=== PATIENT | male | born 1960 | race African-American/Black ===

== ENCOUNTER 2019-06-13 19:49 | Observation (INO) ==
[2019-06-13] MEDS ORDERED: FUROSEMIDE 10 MG/ML VIAL IV ONE (20:05)
[2019-06-13 20:23] LABS: Hematocrit 41.8 % (42.0-52.0); Hemoglobin 13.2 gm/dL (13.5-18.0); Mean Cell Volume 85.1 fl (78-100); Mean Corpuscular Hemoglobin 26.9 pg (27-31); Mean Corpuscular Hgb Conc 31.6 g/dl (32-36); Neutrophil # 4.1 K/mm3 (1.3-6.0); Neutrophil % 71.2 % (42-75.0); Platelet Count 229 K/mm3 (150-450); Red Blood Count 4.91 M/mm3 (4.7-6.0); Red Cell Distribution Width 18.8 % (11.5-14.0); White Blood Count 5.7 K/mm3 (4.0-10.5)
[2019-06-13 20:44] LABS: Albumin * 3.1 gm/dl (3.4-5.0); Anion Gap 10.9 mmol/L (6.8-13.8); BUN/Creatinine Ratio 15.2 (9.0-21.6); Bilirubin, Total 0.4 mg/dL (0.0-1.1); Ca. Corrected For Albumin 8.7 mg/dL (8.4-10.2); Calcium * 8.3 mg/dL (7.9-10.9); Carbon Dioxide 27.3 mmol/L (24-32.6); Potassium 4.2 mmol/L (3.4-4.6); Total Protein 7.4 gm/dL (6.2-8.2); Troponin I 0.071 ng/mL (0.00-0.10)
--- NOTE | 2019-06-13 21:00 | ERNOTE ---
Dyspnea - Date Date of Service: 06/13/19 - General Presenting Symptoms: shortness of breath Time Seen by Provider: 06/13/19 20:04 Source: patient - Immun/Allergies/Home Medications Immunizations: IMMUNIZATION HX Immunizations Up to Date Yes History of Influenza Vaccine No Hx Pneumococcal Vaccination No Allergies/Adverse Reactions: Allergies penicillin G Allergy (Verified 06/13/19 20:13) Home Medications: HOME MEDICATIONS Albuterol Sulfate [Ventolin Hfa] 2 puff IH Q4H PRN 11/15/12 [Last Taken Unknown] Losartan Potassium [Cozaar] 50 mg PO DAILY 11/15/12 [Last Taken Unknown] Metoprolol Tartrate [Lopressor] 100 mg PO QAM 11/15/12 [Last Taken Unknown] Acetaminophen [Tylenol] 500 mg PO QID PRN #30 tab 06/14/19 [Last Taken Unknown] Albuterol Sulfate [Albuterol Sulfate Hfa] 2 puff INHALATION Q4H PRN #1 hfa.aer.ad 06/14/19 [Last Taken Unknown] Atorvastatin Calcium 40 mg PO DAILY 06/14/19 [Last Taken Unknown] Furosemide [Lasix] 80 mg PO DAILY #30 tab 06/14/19 [Last Taken Unknown] Losartan Potassium [Cozaar] 10 mg PO DAILY #30 tab 06/14/19 [Last Taken Unknown] Metoprolol Tartrate [Lopressor] 50 mg PO QPM #30 tab 06/14/19 [Last Taken Unknown] Potassium Chloride [Klor-Con 10] 10 meq PO DAILY #30 tab 06/14/19 [Last Taken Unknown] amLODIPine BESYLATE [Norvasc] 10 mg PO DAILY #30 tab 06/14/19 [Last Taken Unknown] - History of Present Illness Narrative: 58-year-old male comes to the emergency department with progressive dyspnea on exertion and leg swelling. The patient was admitted to [facility] about 2 weeks ago or a little longer. He was discharged about 2 weeks ago. The patient is moving from [place] to [place]. The patient says that he canceled his [place] Medicaid but has not gotten the [place] Medicaid started. Consequently he has not taken any of his medicines except aspirin for at least 10 days to 2 weeks. The patient reports that he has orthopnea, dyspnea, paroxysmal nocturnal dyspnea, leg swelling. He says this is just like when he was admitted to the [facility] a few weeks ago. He has intermittent dull brief chest pain not associated with significant shortness of breath, nausea, diaphoresis. There is no radiation. It is not brought on by exertion and does not go away with rest. Again he has been taking his aspirin. He has had a bit of a runny nose and a nonproductive cough. A bit of abdominal swelling. No fever. No other complaints Review of Systems - Review of Systems Constitutional: Present: fatigue, malaise EYE: Present: no symptoms reported ENT: Present: nasal drainage, sore throat Respiratory: Present: shortness of breath, cough Cardiology: Present: chest pain Gastrointestinal/Abdominal: Present: no symptoms reported. Absent: nausea, vomiting Genitourinary: Present: no symptoms reported Musculoskeletal: Present: no symptoms reported Skin: Present: no symptoms reported Neurological: Present: no symptoms reported Endocrine: Present: no symptoms reported Hematologic/Lymphatic: Present: no symptoms reported Psych: Present: no symptoms reported All Other Systems: All systems neg except as marked Medical History (Updated 06/14/19 @ 13:52 by Pia Aguero MD) Anemia Anxiety CHF (congestive heart failure) COPD (chronic obstructive pulmonary disease) Diabetes Hypertension No pertinent family history Surgical History: Surgical History (Updated 06/14/19 @ 01:09 by Katherin Lovett RN) No pertinent past surgical history Family History: Family History (Updated 06/14/19 @ 00:17 by Katherin Lovett RN) Other No pertinent family history Physical Exam - Physical Exam General Appearance: Present: wd/wn, alert, no apparent distress Head Exam: Present: normal inspection, no evidence of injury Eye Exam: Normal inspection: bilateral, PERRL: bilateral, EOMI: bilateral Ears, Nose, Throat: Present: normal ENT inspection, normal pharynx, other Neck: Present: other - Mucous membranes are moist patient has JVD to the angle. No adenopathy Respiratory: Present: other - Patient has decreased breath sounds throughout with crackles at the bases Cardiovascular/Chest: Present: other - Tachycardic with an S4 Gastrointestinal/Abdominal: Present: normal bowel sounds, nontender, nondistended, soft Back Exam: Present: normal inspection, normal range of motion, no CVA tenderness, no vertebral tenderness Extremity Exam: Present: other - Significant edema bilateral lower extremities 4+ pitting up past the knee Neurological Exam: Present: alert, oriented, normal mood/affect, no motor/sensory deficits Skin Exam: Present: normal color, warm/dry Lymphatic Exam: Present: no adenopathy Progress - Results and Orders Patient's Lab Results:: I have reviewed the patient's lab results. - Vital Signs Patient's Vital Signs:: I have reviewed the patient's vital signs. Vital Signs: Vital Signs 06/13/19 19:58 06/13/19 20:13 06/13/19 20:26 Temperature 37.1 C Pulse Rate 111 H 108 H 108 H Respiratory Rate 20 14 Blood Pressure 174/122 H 183/132 H 175/128 H O2 Sat by Pulse Oximetry 100 99 06/13/19 20:31 06/13/19 20:36 Temperature Pulse Rate 109 H 111 H Respiratory Rate 18 20 Blood Pressure 170/116 H 182/134 H O2 Sat by Pulse Oximetry 100 100 - EKG EKG #1 EKG read: Interp. by me EKG Comments: Sinus tachycardia with a ventricular rate of 118. Right bundle branch block morphology in V1 and V2 but QRS is less than 120 which makes this incomplete right bundle. No ST elevation. Nonspecific T wave changes. Flattening in 1 and aVL. Otherwise T waves have normal direction. - X-Ray X-Ray #1 X-Ray: chest Interpretation: Interp. by me X-ray Comments: Chest x-ray shows vascular congestion with a right middle lobe area of infiltrate or possibly mass. No old's are available. - Progress/Reassessment Chief Complaint: Dyspnea Plan - Plan Plan: I discussed the case with Dr. Potter who is the admitting physician. He would like the patient to get 5 mg of Lopressor IV and 5 mg of lisinopril p.o. Continue to try to get the records and once we get those he will adjust medicines here. The patient is urinating. He was feeling a little achy, takes hydrocodone 3 times a day at home. Was given 5 mg of morphine and said he feels better. I did discuss with Dr. Aguero there is a rounded density in the right middle lobe. Patient is afebrile does not have leukocytosis and not coughing significantly. I doubt pneumonia. No reason to perform blood tests or start antibiotics Departure Clinical Impression: CHF (congestive heart failure) - Departure Disposition: Still a patient Condition: Stable
[2019-06-13] MEDS ORDERED: MORPHINE SULFATE 10 MG/ML SYRG IV ONE (21:50)
[2019-06-13] MEDS ORDERED: METOPROLOL TARTRATE 1 MG/ML AMPUL IV ONE (22:11)
[2019-06-13] MEDS ORDERED: LISINOPRIL 10 MG TABLET PO ONE (22:11)
[2019-06-13] MEDS ORDERED: FLU VACC QS2019-20(6MOS UP)/PF 60 MCG/0.5 ML SYRINGE IM ONE (23:50)
--- NOTE | 2019-06-14 08:39 | HP ---
Chief Complaint - Chief Complaint Date of Service: 06/14/19 Time of Service: 08:38 Chief Complaint: shortness of breath History of Present Illness: Xiang lee is a 58-year-old male with past medical history of hypertension, coronary artery disease, congestive heart failure, diastolic, COPD who was admitted on 06/13/2019 because of increasing shortness of breath. The patient was recently discharged from [facility] where he was admitted from [address] [place] [address] for acute CHF exacerbation exacerbation. The patient is staying in his truck and is moving from [place] to [place] and was not able to fill his medication because he is still in the process of being accomplishing his Medicaid papers. For the last few days the patient has been having increasing shortness of breath associated with orthopnea, paroxysmal nocturnal dyspnea, and increasing leg swelling. He had a brief chest pain which was not associated with exertion and did not go away with rest. The patient then went to our emergency room where chest x-ray showed that he had some opacities which could be atelectasis but infection cannot be ruled out, increased vascular congestion likely interstitial edema. His EKG shows sinus tachycardia, left atrial enlargement, incomplete right bundle branch block, nonspecific ST-T wave abnormality. His troponins x 2 were within normal limits. His white blood cell count was normal and his BNP was elevated. He was given IV Lasix and was admitted for further evaluation and treatment. He put out 3.6 L since admission. He is feeling much better this morning. Medical History (Updated 06/14/19 @ 01:10 by Katherin Lovett RN) Anemia Anxiety CHF (congestive heart failure) COPD (chronic obstructive pulmonary disease) Diabetes Hypertension No pertinent family history Surgical History: Surgical History (Updated 06/14/19 @ 01:09 by Katherin Lovett RN) No pertinent past surgical history Family History: Family History (Updated 06/14/19 @ 00:17 by Katherin Lovett RN) Other No pertinent family history Review Of Systems (GEN) - Review of Systems Generalized/Overall Review: Absent: Weakness, Chills, Fever EENTM: Absent: Blurred Vision Respiratory: Present: Cough, Shortness of Breath, Orthopnea Cardiac: Present: Chest Pain, Edema. Absent: Palpitations Abdominal: Absent: Nausea, Vomiting Genitourinary: Absent: Urgency, Frequency Musculoskeletal: Absent: Joint Pain, Back Pain Neurological: Absent: Headache Skin: Absent: Lesions, Rash Immunizations: IMMUNIZATION HX Immunizations Up to Date Yes History of Influenza Vaccine No Hx Pneumococcal Vaccination No Allergies/Adverse Reactions: Allergies Allergy/AdvReac Type Severity Reaction Status Date / Time penicillin G Allergy Verified 06/13/19 20:13 Home Medications: HOME MEDICATIONS Albuterol Sulfate [Ventolin Hfa] 18 gm IH Q4H PRN 11/15/12 [Last Taken Unknown] Losartan Potassium [Cozaar] 50 mg PO DAILY 11/15/12 [Last Taken Unknown] Metoprolol Tartrate [Lopressor] 50 mg PO BID 11/15/12 [Last Taken Unknown] amLODIPine BESYLATE [Norvasc (Amlodipine)] 10 mg PO DAILY 11/15/12 [Last Taken Unknown] Exam - Exam Vital Signs: Vital Signs - Last Taken Temp 36.8 C 06/14/19 06:37 Pulse 85 06/14/19 06:37 Resp 20 06/14/19 06:37 BP 145/96 H 06/14/19 06:37 Pulse Ox 93 06/14/19 06:37 Constitutional: Present: Alert, Oriented x3, Cooperative ENT Exam: Present: hearing grossly normal Eye Exam: bilateral eye: normal inspection, PERRL, EOMI Neck: Present: supple. Absent: lymphadenopathy (R), lymphadenopathy (L) Respiratory: Present: decreased breath sounds, rales, wheezing Cardiovascular/Chest: Present: regular rate, rhythm, no JVD, no murmur Abdomen: Present: Normal bowel sounds, soft, nontender, nondistended Extremity: Present: no calf tenderness, lower extremity edema Diagnostic Studies: Abnormal Lab Results 06/13/19 06/13/19 Range/Units 20:20 20:20 Hgb 13.2 L (13.5-18.0) gm/dL Hct 41.8 L (42.0-52.0) % MCH 26.9 L (27-31) pg MCHC 31.6 L (32-36) g/dl RDW 18.8 H (11.5-14.0) % Lymphocytes % 16.7 L (20-51) % Monocytes % 9.8 H (0.0-9) % Lymphocytes # 0.95 L (1.5-3.5) k/mm3 Random Glucose 111 H (70-110) mg/dL ALT 17 L (19-67) U/L B-Natriuretic Peptide 1927 H (5-175) pg/mL Albumin 3.1 L (3.4-5.0) gm/dl Laboratory Results WBC 5.7 K/mm3 (4.0-10.5) 06/13/19 20:20 RBC 4.91 M/mm3 (4.7-6.0) 06/13/19 20:20 Hgb 13.2 gm/dL (13.5-18.0) L 06/13/19 20:20 Hct 41.8 % (42.0-52.0) L 06/13/19 20:20 MCV 85.1 fl (78-100) 06/13/19 20:20 MCH 26.9 pg (27-31) L 06/13/19 20:20 MCHC 31.6 g/dl (32-36) L 06/13/19 20:20 RDW 18.8 % (11.5-14.0) H 06/13/19 20:20 Plt Count 229 K/mm3 (150-450) 06/13/19 20:20 MPV 9.0 fl (8-11.3) 06/13/19 20:20 Immature Gran % (Auto) 0.20 % (0.001-0.429) 06/13/19 20:20 Immature Gran # (Auto) 0.01 K/mm3 (0.000-0.0310) 06/13/19 20:20 71.2 % (42-75.0) 06/13/19 20:20 16.7 % (20-51) L 06/13/19 20:20 9.8 % (0.0-9) H 06/13/19 20:20 1.4 % (0.0-3.0) 06/13/19 20:20 0.7 % (0.0-1.0) 06/13/19 20:20 Nucleated RBC % 0.0 k/mm3 (0-1) 06/13/19 20:20 4.1 K/mm3 (1.3-6.0) 06/13/19 20:20 0.95 k/mm3 (1.5-3.5) L 06/13/19 20:20 0.6 k/mm3 (0.0-1.0) 06/13/19 20:20 0.1 k/mm3 (0.0-0.7) 06/13/19 20:20 Absolute Basophils 0.0 k/mm3 (0.0-0.1) 06/13/19 20:20 Sodium 135 mmol/L (132-142) 06/13/19 20:20 135 mmol/L (130-142) 06/13/19 20:20 Potassium 4.2 mmol/L (3.4-4.6) 06/13/19 20:20 Chloride 101 mmol/L (97-106) 06/13/19 20:20 Carbon Dioxide 27.3 mmol/L (24-32.6) 06/13/19 20:20 10.9 mmol/L (6.8-13.8) 06/13/19 20:20 BUN 17 mg/dL (6-23) 06/13/19 20:20 1.12 mg/dL (0.4-1.4) 06/13/19 20:20 Est GFR (Non-Af Amer) 87 mL/min (60-130) 06/13/19 20:20 15.2 (9.0-21.6) 06/13/19 20:20 111 mg/dL (70-110) H 06/13/19 20:20 Calcium 8.3 mg/dL (7.9-10.9) 06/13/19 20:20 Calcium Adj for Albumin 8.7 mg/dL (8.4-10.2) 06/13/19 20:20 0.4 mg/dL (0.0-1.1) 06/13/19 20:20 AST 20 U/L (0-48) 06/13/19 20:20 ALT 17 U/L (19-67) L 06/13/19 20:20 64 U/L (50-170) 06/13/19 20:20 0.064 ng/mL (0.00-0.10) 06/14/19 00:10 B-Natriuretic Peptide 1927 pg/mL (5-175) H 06/13/19 20:20 7.4 gm/dL (6.2-8.2) 06/13/19 20:20 3.1 gm/dl (3.4-5.0) L 06/13/19 20:20 Assessment/Plan - Narrative Narrative: Deanna Church was admitted for increasing shortness of breath due to acute CHF exacerbation likely from missed medications. He put out 3.6 L since admission after getting 80 mg of IV Lasix. He is feeling much better this morning.. We will give him another 40 mg of IV Lasix today and resume his home medications. We will also give him DuoNeb treatments and continue his Ventolin inhaler as needed.. We will repeat BMP today. He is likely to be discharge later if he continues to be stable. He is saturating 93% on room air - Assessment/Plan (1) Acute exacerbation of CHF (congestive heart failure) Problem: Acute (2) Hypertension Problem: Acute (3) COPD (chronic obstructive pulmonary disease) Problem: Chronic (4) Hyperlipidemia Problem: Chronic
[2019-06-14] MEDS ORDERED: LOSARTAN POTASSIUM 50 MG TABLET PO SCH (09:00)
[2019-06-14] MEDS ORDERED: ALBUTEROL SULFATE 2.5 MG/0.5 ML VIAL.NEB IH PRN (09:27)
[2019-06-14] MEDS ORDERED: amLODIPine BESYLATE 10 MG TABLET PO SCH (09:30)
[2019-06-14] MEDS ORDERED: METOPROLOL TARTRATE 50 MG TABLET PO SCH (09:30)
[2019-06-14] MEDS ORDERED: FUROSEMIDE 10 MG/ML VIAL IV ONE ×4 (09:33→10:30)
[2019-06-14 10:11] LABS: Anion Gap 6.8 mmol/L (6.8-13.8); BUN/Creatinine Ratio 14.8 (9.0-21.6); Calcium * 8.1 mg/dL (7.9-10.9); Carbon Dioxide 30.7 mmol/L (24-32.6); Estimated Creat Clear 81.3; Potassium 3.5 mmol/L (3.4-4.6)
[2019-06-14] MEDS: ALBUTEROL SULFATE/IPRATROPIUM 3 ML NEBU IH SCH ×2 (10:16→14:07)
[2019-06-14] MEDS ORDERED: POTASSIUM CHLORIDE 10 MEQ TABLET.SA PO ONE (13:18)
--- NOTE | 2019-06-14 13:23 | DS ---
(1) Acute exacerbation of CHF (congestive heart failure) Problem: Resolved (2) Hypertension Problem: Chronic (3) COPD (chronic obstructive pulmonary disease) Problem: Chronic (4) Hyperlipidemia Problem: Chronic Date of Discharge:: 06/14/19 Description of Stay: Xiang Ramos is a 58-year-old male with past medical history of hypertension, coronary artery disease, congestive heart failure, diastolic, COPD who was admitted on 06/13/2019 because of increasing shortness of breath. The patient was recently discharged from [facility] where he was admitted from [address] [place] [address] for acute CHF exacerbation exacerbation. The patient is staying in his truck and is moving from [place] to [place] and was not able to fill his medication because he is still in the process of being accomplishing his Medicaid papers. For the last few days the patient has been having increasing shortness of breath associated with orthopnea, paroxysmal nocturnal dyspnea, and increasing leg swelling. He had a brief chest pain which was not associated with exertion and did not go away with rest. The patient then went to our emergency room where chest x-ray showed that he had some opacities which could be atelectasis but infection cannot be ruled out, increased vascular congestion likely interstitial edema. His EKG shows sinus tachycardia, left atrial enlargement, incomplete right bundle branch block, nonspecific ST-T wave abnormality. His troponins x 2 were within normal limits. His white blood cell count was normal and his BNP was elevated. He was given IV Lasix and was admitted for further evaluation and treatment. He put out 3.6 L since admission. He is feeling much better this morning. We gave him another 40 mg of IV lasix and resumed his home medications. We started him on Duoneb treatments. He is stable to be discharged today and he will follow up with his doctors in [place]. Procedures Performed: none Results and Findings: Lab Pending Results 06/13/19 20:20: WBC 5.7, RBC 4.91, Hgb 13.2 L, Hct 41.8 L, MCV 85.1, MCH 26.9 L, MCHC 31.6 L, RDW 18.8 H, Plt Count 229, MPV 9.0, Immature Gran % (Auto) 0.20, Immature Gran # (Auto) 0.01, Neutrophils % 71.2, Lymphocytes % 16.7 L, Monocytes % 9.8 H, Eosinophils % 1.4, Basophils % 0.7, Nucleated RBC % 0.0, Neutrophils # 4.1, Lymphocytes # 0.95 L, Monocytes # 0.6, Eosinophils # 0.1, Absolute Basophils 0.0 06/13/19 20:20: Sodium 135, Plasma Sodium 135, Potassium 4.2, Chloride 101, Carbon Dioxide 27.3, Anion Gap 10.9, BUN 17, Creatinine 1.12, Est GFR (Non-Af Amer) 87, BUN/Creatinine Ratio 15.2, Random Glucose 111 H, Calcium 8.3, Calcium Adj for Albumin 8.7, Total Bilirubin 0.4, AST 20, ALT 17 L, Alkaline Phosphatase 64, Troponin I 0.071, B-Natriuretic Peptide 1927 H, Total Protein 7.4, Albumin 3.1 L 06/14/19 00:10: Troponin I 0.064 06/14/19 09:56: Sodium 135, Plasma Sodium 135, Potassium 3.5, Chloride 101, Carbon Dioxide 30.7, Anion Gap 6.8, BUN 16, Creatinine 1.08, Est GFR (Non-Af Amer) 91, BUN/Creatinine Ratio 14.8, Random Glucose 127 H, Calcium 8.1 Discharge Location: Home Disposition: Home self-care Condition: Stable Discharge Activity: Activity as tolerated Discharge Diet: Low salt Additional Patient Instructions (free text): Follow up with PCP at [facility] in [place], [place]. Prescriptions (Any new or edited meds): Losartan Potassium [Cozaar] 10 mg PO DAILY #30 tab Potassium Chloride [Klor-Con 10] 10 meq PO DAILY #30 tab Furosemide [Lasix] 80 mg PO DAILY #30 tab Metoprolol Tartrate [Lopressor] 50 mg PO QPM #30 tab amLODIPine BESYLATE [Norvasc] 10 mg PO DAILY #30 tab Acetaminophen [Tylenol] 500 mg PO QID PRN #30 tab PRN Reason: Pain Complete Home Medications List: Complete Home Medication List: Albuterol Sulfate [Ventolin Hfa] 2 puff IH Q4H PRN 11/15/12 Losartan Potassium [Cozaar] 50 mg PO DAILY 11/15/12 Metoprolol Tartrate [Lopressor] 100 mg PO QAM 11/15/12 Acetaminophen [Tylenol] 500 mg PO QID PRN #30 tab 06/14/19 Atorvastatin Calcium 40 mg PO DAILY 06/14/19 Furosemide [Lasix] 80 mg PO DAILY #30 tab 06/14/19 Losartan Potassium [Cozaar] 10 mg PO DAILY #30 tab 06/14/19 Metoprolol Tartrate [Lopressor] 50 mg PO QPM #30 tab 06/14/19 Potassium Chloride [Klor-Con 10] 10 meq PO DAILY #30 tab 06/14/19 amLODIPine BESYLATE [Norvasc] 10 mg PO DAILY #30 tab 06/14/19
[2019-06-14] MEDS ORDERED: ACETAMINOPHEN 500 MG TABLET PO PRN (13:52)
[2019-06-14 15:35] VITALS: BP 142/92
[2019-06-14] MEDS ORDERED: METOPROLOL TARTRATE 100 MG TABLET PO SCH (21:00)
== END 2019-06-14 17:00 | disposition home or self-care (01) ==
LOC: ER 19:49 → MS 22:20 → INTOOBSV 22:20 → MS 23:15
PROVIDERS: ADMIT Internal Medicine; ATTEND Internal Medicine
DX: E78.5 Hyperlipidemia, unspecified; Z23 Encounter for immunization; I10 Essential (primary) hypertension; I50.9 Heart failure, unspecified; J44.9 Chronic obstructive pulmonary disease, unspecified
CPT/HCPCS: 36415; 71020; 71046; 80048; 80053; 83519; 83880; 84484; 85025; 90686; 93005; 94640; 94664; 96374; 96375; 99285; G0008; G0378